=== PATIENT | female | born 1975 | race Caucasian/White ===

== ENCOUNTER 2024-03-10 21:26 | Emergency (ER) | payer BC, SELFPAY ==
[2024-03-10 21:28] VITALS: BP 125/75; PULSE 81; TEMP 36.3; O2SAT 99; BMI 37.8
--- NOTE | 2024-03-10 21:42 | ECG_ITS ---
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
--- NOTE | 2024-03-10 21:43 | XR_ITS ---
[facility] [place] [id number] Patient Name: TAMI BRAXTON MRN: [id number] date: 1975 Sex: F Assigned Patient Location: ER Current Patient Location: ED.MAIN Accession/Order Number: [id number] Exam Date: 03/10/2024 21:50 Report Date: 03/10/2024 23:24 At the request of: ANDREA ERICKSON Procedure: XR chest 1V XR chest 1V 03/10/2024 9:50 PM EST CLINICAL INDICATION: Dizziness COMPARISON: None. TECHNIQUE: Portable semiupright AP view of the chest. FINDINGS: There are no tubes or implants noted. The cardiomediastinal silhouette and pulmonary vasculature are within normal limits. The lungs are clear. No pneumothorax or pleural effusion. Osseous structures and soft tissues are within normal limits. XR/XR chest 1V IMPRESSION: No acute cardiopulmonary abnormality. Electronically authenticated by: SHADI FAUSTIN Date: 03/10/2024 23:24
--- NOTE | 2024-03-10 21:44 | ED_ITS ---
HPI HPI - General Adult General Chief complaint: Overdose Stated complaint: CARDIAC Time Seen by Provider: 03/10/24 21:28 Source: patient Mode of arrival: ambulance Limitations: no limitations History of Present Illness HPI narrative: This patient is a 48-year-old female who presents to the emergency department by EMS after taking a THC gummy and feeling dizzy, anxious and lightheaded. She states she has never taken this particular THC gummy previously. She states about 1 hour ago, she took the THC gummy and began to feel dizzy, like she was paralyzed and could not move any of her extremities, she felt nauseous and had multiple episodes of vomiting. She states that she believes she started to panic when the symptoms began which exacerbated them. On EMS arrival, the patient was treated with Zofran. EMS did contact the emergency department physician for refusal for this patient but the patient and EMS apparently change their mind and brought the patient to the ER. She states all of her symptoms are significantly better at this time. She is noted to have completely normal vital signs on arrival to the ER and is resting comfortably on the cot. Related Data Home Medications ?Medication ?Instructions ?Recorded ?Confirmed No Known Home Medications 03/10/24 03/10/24 Allergies Allergy/AdvReac Type Severity Reaction Status Date / Time Penicillins Allergy Unknown Unknown Verified 03/10/24 21:34 Opioid HPI Opioid Management Most Recent Opioid Data: No Data to Display Review of Systems ROS Constitutional Denies: fever or chills Ears, nose, mouth, and throat Denies: throat pain or nasal congestion Cardiovascular Denies: chest pain Respiratory Reports: shortness of breath; Denies: cough Gastrointestinal Reports: nausea and vomiting; Denies: abdominal pain Musculoskeletal Denies: back pain or neck pain Neurological Reports: weakness in extremities and dizziness; Denies: headache or numbness in extremities Hematologic/Lymphatic Denies: easy bruising or easy bleeding Exam Narrative Exam Narrative: Gen.: Awake, alert, in no distress Head: Normocephalic, atraumatic ENT: Moist mucous membranes Respiratory: No respiratory distress, lungs clear bilaterally Cardio: Regular rate and rhythm Gastrointestinal: Abdomen is soft, nondistended and nontender to palpation Extremities: Moves extremities equally, no injuries noted Psych: Normal mood and affect Neuro: No focal neuro deficit Skin: Warm, dry, intact Constitutional Vital Signs, click to edit/add: Last Vital Signs Temp 97.3 F L 03/10/24 21:28 Pulse 81 03/10/24 21:28 Resp 18 03/10/24 21:28 BP 125/75 03/10/24 21:28 Pulse Ox 99 03/10/24 21:28 O2 Del Method Room Air 03/10/24 21:28 Course Vital Signs Vital signs: Vital Signs Temperature 97.3 F L 03/10/24 21:28 Pulse Rate 81 03/10/24 21:28 Respiratory Rate 18 03/10/24 21:28 Blood Pressure 125/75 03/10/24 21:28 Pulse Oximetry 99 03/10/24 21:28 Oxygen Delivery Method Room Air 03/10/24 21:28 Temperature 97.3 F L 03/10/24 21:28 Pulse Rate 81 03/10/24 21:28 Respiratory Rate 18 03/10/24 21:28 Blood Pressure 125/75 03/10/24 21:28 Pulse Oximetry 99 03/10/24 21:28 Oxygen Delivery Method Room Air 03/10/24 21:28 Medical Decision Making MDM Narrative Medical decision making narrative: 214: Patient was evaluated on arrival, she is hemodynamically stable with normal vital signs and all of her symptoms have essentially resolved at this ti me. Cardiac workup initiated for the patient and the patient is turned over to attending physician at this time for disposition. SHARED APC VISIT, PHYSICIAN ATTESTATION: [id number] I performed a substantive part of the MDM during the patient?s E/M visit. I personally evaluated and examined the patient. I personally made or approved the documented management plan and acknowledge its risk of complications. Medical Records Medical records reviewed: Yes I reviewed the patient's medical records Lab Data Lab results reviewed: Yes I reviewed the patient's lab results ECG Data Attestation: I personally reviewed and interpreted this ECG as follows: (Normal sinus rhythm at a rate of 79, no acute ST elevation or ectopy. EKG reviewed by attending physician) Discharge Plan Discharge Chief Complaint: Overdose Clinical Impression: Dizziness Patient Disposition: Still a Patient Prescriptions / Home Meds: No Action No Known Home Medications Print Language: Vietnamese Referrals: Physician,Non-Staff, MD [Primary Care Provider] - 1 week
[2024-03-10 21:52] LABS: Basophils Percent Auto 0.2 % (0.2-2.0); Eosinophils Percent Auto 0.2 % (0.9-7.0); Hematocrit 40.9 % (36.0-48.0); Hemoglobin 13.2 g/dL (12.0-16.0); Immature Granulocytes Abs Auto 0.07 10^3/uL (0.00-0.03); Immature Granulocytes Pct Auto 0.7 % (0.0-0.5); Lymphocytes Absolute Auto 1.6 10^3/uL (1.2-3.8); Lymphocytes Percent Auto 16.1 % (20.5-60.0); Mean Corpuscular HGB Conc 32.3 g/dL (29.9-35.2); Mean Corpuscular Hemoglobin 29.2 pg (26.7-34.0); Mean Corpuscular Volume 90.5 fL (81.0-99.0); Mean Platelet Volume 11.5 fL (9.5-13.5); Monocytes Absolute Auto 0.4 10^3/uL (0.3-0.8); Monocytes Percent Auto 3.6 % (1.7-12.0); Neutrophils Absolute Auto 7.9 10^3/uL (1.4-6.5); Neutrophils Percent Auto 79.2 % (43.0-75.0); Platelet Count 240 10^3/uL (150-450); Red Blood Count 4.52 10^6/uL (4.20-5.40); Red Cell Distribution Width 12.3 % (11.0-15.0); White Blood Count 9.9 10^3/uL (4.0-11.0)
[2024-03-10] MEDS: 0.9 % SODIUM CHLORIDE 1,000 ML 999 ML IV (22:00)
[2024-03-10 22:05] LABS: INR 0.94
[2024-03-10 22:06] LABS: Alanine Aminotransferase 29 U/L (14-59); Albumin Globulin Ratio 1.1; Albumin Level 3.7 g/dL (3.4-5.0); Alkaline Phosphatase 110 U/L (46-116); Anion Gap 13.4; Aspartate Amino Transferase 18 U/L (15-37); BUN Creatinine Ratio 14.5; Bilirubin Total 0.4 mg/dL (0.2-1.0); Calcium 9.1 mg/dL (8.5-10.1); Carbon Dioxide 28.6 mmol/L (21.0-32.0); Chloride 106 mmol/L (98-107); Estimated GFR (African America >60 (>=60 mL/min/1.73m^2); Estimated GFR (Non-African Ame 50 (>=60 mL/min/1.73m^2); Ethanol <3 mg/dL; Globulin 3.5 g/dL; Glucose 161 mg/dL (74-106); Sodium 144 mmol/L (136-145); Total Protein 7.2 g/dL (6.4-8.2); Troponin I High Sensitivity <4.0 pg/mL (4.0-51.3)
[2024-03-10 23:20] LABS: Bilirubin Urine NEGATIVE (NEGATIVE); Blood Urine NEGATIVE (NEGATIVE); Clarity Urine CLEAR (CLEAR); Glucose Urine UA NEGATIVE (NEGATIVE); Ketones Urine NEGATIVE (NEGATIVE); Leukocyte Esterase Urine NEGATIVE (NEGATIVE); Nitrite Urine POSITIVE (NEGATIVE); Protein Urine NEGATIVE (NEG/TRACE)
[2024-03-10 23:22] LABS: Urine Microscopic Indicated YES
[2024-03-10 23:27] LABS: Color Urine DK YELLOW (YELLOW)
[2024-03-10 23:29] LABS: Bacteria Urine SMALL #/HPF (NONE SEEN); Cast Seen? NONE SEEN #/LPF (NONE SEEN); Crystals Seen? None Seen #/HPF (None Seen); Mucus Urine NONE SEEN (NONE SEEN); RBC Urine NONE SEEN #/HPF (0-2); Squamous Epithelial Cell Urine RARE #/LPF (NONE/RARE); Urine Culture Indicated YES; WBC Urine 0-2 #/HPF (NONE SEEN)
[2024-03-10 23:30] LABS: Amphetamine Screen Urine NEGATIVE (NEGATIVE); Barbiturates Screen Urine NEGATIVE (NEGATIVE); Benzodiazepines Screen Urine NEGATIVE (NEGATIVE); Buprenorphine Screen Urine NEGATIVE (NEGATIVE); Cannabinoid Screen Urine POSITIVE (NEGATIVE); Cocaine Screen Urine NEGATIVE (NEGATIVE); Methadone Screen Urine NEGATIVE (NEGATIVE); Methamphetamines Screen Urine NEGATIVE (NEGATIVE); Opiate Screen Urine NEGATIVE (NEGATIVE); Oxycodone Screen Urine NEGATIVE (NEGATIVE); Phencyclidine Screen Urine NEGATIVE (NEGATIVE); Tricyclic Antidepressant Urine NEGATIVE (NEGATIVE)
[2024-03-11] MEDS: CEPHALEXIN 500 MG CAPSULE PO (00:35)
== END 2024-03-11 00:36 | disposition home or self-care (01) ==
PROVIDERS: Physician Assistant; Emergency Provider Student in an Organized Health Care Education/Training Program
DX: R42 Dizziness and giddiness (principal); R30.0 Dysuria
CPT/HCPCS: 36415; 71045; 80053; 80307; 80320; 81001; 84484; 85025; 85610; 87086; 93005; 99285